=== PATIENT | male | born 1950 | race Caucasian/White ===

== ENCOUNTER 2016-12-14 16:28 | Emergency (ER) | payer MEDICARE, OTHER ==
[2016-12-14 16:41] VITALS: TEMP 97.7
[2016-12-14] MEDS ORDERED: ACETAMINOPHEN 325 MG PO ONE (17:01)
[2016-12-14] MEDS ORDERED: SODIUM CHLORIDE 0.9% 1000ML 1,000 ML IV ONE (17:01)
[2016-12-14] MEDS ORDERED: ACETAMINOPHEN 325 MG ONE (17:04)
[2016-12-14 17:14] LABS: BASOPHILS % (AUTO) 2 % (0-3); EOSINOPHILS % (AUTO) 4 % (0-9); HEMATOCRIT 39 % (39-53); MEAN CORPUSCULAR HGB CONC 33.4 gm/dl (32.0-36.0); MEAN CORPUSCULAR VOLUME 91 fL (80-100); MONOCYTES % (AUTO) 5.2 % (0-12); NEUTROPHILS % (AUTO) 75.3 % (37-80)
[2016-12-14 17:24] VITALS: RESP 18; O2SAT 97
[2016-12-14 17:31] LABS: ALBUMIN 3.5 gm/dl (3.4-5.0); ALT 25 IU/L (14-63); CALCIUM 8.4 mg/dl (8.5-10.1); GLOM FILT RATE 70 mL/min (>60); POTASSIUM 4.4 mMol/L (3.5-5.1); SODIUM 139 mMol/L (136-145)
[2016-12-14 18:23] VITALS: BP 128/72; PULSE 78
== END 2016-12-14 18:48 | DRG 641 ==
LOC: ED 16:28
DX: E86.0 Dehydration (principal)
CPT/HCPCS: 80053; 84484; 85025; 93005; 99285

== ENCOUNTER 2018-03-21 16:57 | Emergency (ER) | payer MEDICARE, OTHER ==
[2018-03-21 17:26] VITALS: PULSE 75; RESP 16; TEMP 97.5
[2018-03-21] MEDS ORDERED: KETOROLAC TROMETHAMINE 30 MG/ML SOL IM ONE (17:41)
[2018-03-21] MEDS ORDERED: CYCLOBENZAPRINE 10 MG TAB PO ONE (17:42)
[2018-03-21] MEDS ORDERED: KETOROLAC TROMETHAMINE 30 MG/ML SOL ONE (17:49)
[2018-03-21] MEDS ORDERED: CYCLOBENZAPRINE 10 MG TAB ONE (17:49)
[2018-03-21 18:17] LABS: BASOPHILS % (AUTO) 2 % (0-3); EOSINOPHILS % (AUTO) 5 % (0-9); HEMATOCRIT 41 % (39-53); HEMOGLOBIN 14.2 gm/dl (13.5-17.7); LYMPHOCYTES % (AUTO) 31.03 % (10-50); MEAN CORPUSCULAR HEMOGLOBIN 31.5 pg (27.0-32.0); MEAN CORPUSCULAR HGB CONC 34.1 gm/dl (32.0-36.0); MEAN CORPUSCULAR VOLUME 92 fL (80-100); MONOCYTES % (AUTO) 6.8 % (0-12); NEUTROPHILS % (AUTO) 54.7 % (37-80)
[2018-03-21 18:28] VITALS: BP 156/82; O2SAT 97
[2018-03-21 18:42] LABS: BILIRUBIN,DIRECT 0.1 mg/dl (0.0-0.2); BILIRUBIN,TOTAL 0.2 mg/dl (0.2-1.0); CALCIUM 8.8 mg/dl (8.5-10.1); CARBON DIOXIDE 33.5 mEq/L (21-32); CREATININE 0.92 mg/dl (0.80-1.30); POTASSIUM 4.4 mMol/L (3.5-5.1); THYROID STIMULATING HORMONE 1.861 uIU/ml (0.358-3.740); TOTAL PROTEIN 7.3 gm/dl (6.4-8.2)
== END 2018-03-21 18:58 | DRG 552 ==
LOC: ED 16:57
DX: M54.2 Cervicalgia (principal); M62.838 Other muscle spasm
CPT/HCPCS: 36415; 80048; 80076; 84443; 85025; 96372; 99283; J1885; A9270-GY

== ENCOUNTER 2018-12-31 01:19 | Emergency (ER) | payer MEDICARE, OTHER ==
[2018-12-31] MEDS ORDERED: HYDROMORPHONE HCL 2 MG/ML SOL IV ONE (01:36)
[2018-12-31] MEDS ORDERED: ACETAMINOPHEN 1,000 MG/100 ML VIAL IV ONE (01:36)
[2018-12-31] MEDS ORDERED: KETOROLAC TROMETHAMINE 30 MG/ML SOL IV ONE (01:36)
[2018-12-31 01:44] VITALS: RESP 16
[2018-12-31] MEDS ORDERED: ONDANSETRON HCL 4 MG/2 ML SOL IV ONE (01:45)
[2018-12-31] MEDS ORDERED: KETOROLAC TROMETHAMINE 30 MG/ML SOL ONE (01:48)
[2018-12-31] MEDS ORDERED: HYDROMORPHONE 1 MG/ML SYRINGE ONE (01:48)
[2018-12-31] MEDS ORDERED: ONDANSETRON HCL 4 MG/2 ML SOL ONE (01:49)
[2018-12-31 01:53] LABS: HEMATOCRIT 37 % (39-53); HEMOGLOBIN 12.2 gm/dl (13.5-17.7); MEAN CORPUSCULAR HGB CONC 32.8 gm/dl (32.0-36.0); MEAN CORPUSCULAR VOLUME 91 fL (80-100)
[2018-12-31 02:08] LABS: ALKALINE PHOSPHATASE 129 IU/L (46-116); ALT 19 IU/L (14-63); AST 21 IU/L (15-37); BILIRUBIN,TOTAL 0.2 mg/dl (0.2-1.0); BLOOD UREA NITROGEN 21 mg/dl (7-18); CALCIUM 8.7 mg/dl (8.5-10.1); CARBON DIOXIDE 32.9 mEq/L (21-32); CHLORIDE 101 mMol/L (98-107); GLUCOSE 99 mg/dl (74-106); POTASSIUM 4.8 mMol/L (3.5-5.1); SODIUM 138 mMol/L (136-145); TOTAL PROTEIN 6.9 gm/dl (6.4-8.2); TROP I < 0.017 ng/ml (0.000-0.056)
[2018-12-31 02:13] LABS: BAND NEUTROPHILS % (MANUAL) 4 %; NEUTROPHILS % (MANUAL) 54 % (37-80)
[2018-12-31 02:14] LABS: BASOPHILS % (MANUAL) 2 % (0-3); EOSINOPHILS % (MANUAL) 11 % (0-9); LYMPHOCYTES % (MANUAL) 22 % (10-50); MONOCYTES % (MANUAL) 7 % (0-12); NORMAL RBCS PRESENT
[2018-12-31] MEDS ORDERED: MAGNESIUM OXIDE 400 MG TAB ONE (02:39)
[2018-12-31] MEDS ORDERED: MAGNESIUM OXIDE 400 MG TAB PO SCH (09:00)
[2018-12-31 12:00] VITALS: BP 136/82; PULSE 76; O2SAT 93
== END 2018-12-31 08:40 | DRG 556 ==
LOC: SUPCPDRO 01:19 → ED 01:19
DX: M79.602 Pain in left arm (principal); M54.9 Dorsalgia, unspecified; E86.0 Dehydration
CPT/HCPCS: 36415; 80053; 83735; 84484; 85007; 85027; 93005; 96374; 96375; 99283; 99285; J1885; J2405; A9270-GY; J1170

== ENCOUNTER 2019-02-07 15:25 | Emergency (ER) | payer MEDICARE, OTHER ==
[2019-02-07 15:52] VITALS: RESP 16; TEMP 97.6
[2019-02-07 16:07] LABS: BASOPHILS % (AUTO) 1 % (0-3); EOSINOPHILS % (AUTO) 8 % (0-9); HEMATOCRIT 39 % (39-53); HEMOGLOBIN 13.1 gm/dl (13.5-17.7); LYMPHOCYTES % (AUTO) 16.2 % (10-50); MEAN CORPUSCULAR HEMOGLOBIN 30.8 pg (27.0-32.0); MEAN CORPUSCULAR HGB CONC 33.3 gm/dl (32.0-36.0); MEAN CORPUSCULAR VOLUME 93 fL (80-100); NEUTROPHILS % (AUTO) 65.3 % (37-80)
[2019-02-07 16:31] LABS: ALBUMIN 3.5 gm/dl (3.4-5.0); ALKALINE PHOSPHATASE 129 IU/L (46-116); ALT 28 IU/L (14-63); AST 26 IU/L (15-37); BILIRUBIN,TOTAL 0.2 mg/dl (0.2-1.0); BLOOD UREA NITROGEN 25 mg/dl (7-18); CALCIUM 8.6 mg/dl (8.5-10.1); CARBON DIOXIDE 33.3 mEq/L (21-32); CREATININE 1.03 mg/dl (0.80-1.30); GLUCOSE 92 mg/dl (74-106); TOTAL PROTEIN 7.1 gm/dl (6.4-8.2); TROP I < 0.017 ng/ml (0.000-0.056)
[2019-02-07 16:43] LABS: CHLORIDE 103 mMol/L (98-107); POTASSIUM 4.4 mMol/L (3.5-5.1); SODIUM 139 mMol/L (136-145)
[2019-02-07 19:29] VITALS: BP 161/67; PULSE 75; O2SAT 98
[2019-02-07 19:44] LABS: APPEARANCE,URINE Slightly Cloudy; BILIRUBIN,URINE NEGATIVE (NEGATIVE); COLOR,URINE Yellow; GLUCOSE, URINE (UA) NEGATIVE (NEGATIVE); KETONES,URINE NEGATIVE (NEGATIVE); LEUKOCYTE ESTERASE ,URINE 1+ (NEGATIVE); NITRATE,URINE POSITIVE (NEGATIVE); OCCULT BLOOD,URINE NEGATIVE (NEG-TRACE); UROBILINOGEN,URINE 0.2 (0.2-1.0 EU)
[2019-02-07 19:55] LABS: BACTERIA 3+ (< 1+); CRYSTALS NEGATIVE (0-3 AVE/HPF); EPITHELIAL CELLS 0-1 (SQUAMOUS); RBC,URINE 0-1 (0-3AV/HPF)
[2019-02-07] MEDS ORDERED: SULFAMETHOXAZOLE/TRIMETHOPRI 800/160 MG ONE (20:25)
[2019-02-07] MEDS ORDERED: SULFAMETHOXAZOLE/TRIMETHOPRI 800/160 MG PO ONE (20:25)
== END 2019-02-07 20:37 | DRG 690 ==
LOC: ED 15:25
DX: N30.00 Acute cystitis without hematuria (principal); R55 Syncope and collapse; R41.0 Disorientation, unspecified; H92.01 Otalgia, right ear; W18.30XA Fall on same level, unspecified, initial encounter
CPT/HCPCS: 36415; 70450; 73521; 80053; 81001; 84484; 85025; 87077; 87088; 87186; 93005; 99283; 99284; A9270-GY

== ENCOUNTER 2019-04-05 12:33 | Emergency (ER) | payer MEDICARE, OTHER ==
[2019-04-05 12:52] VITALS: TEMP 98.4
[2019-04-05 13:46] LABS: BASOPHILS % (AUTO) 1 % (0-3); EOSINOPHILS % (AUTO) 7 % (0-9); HEMATOCRIT 41 % (39-53); HEMOGLOBIN 13.4 gm/dl (13.5-17.7); LYMPHOCYTES % (AUTO) 25.7 % (10-50); MEAN CORPUSCULAR HEMOGLOBIN 31.7 pg (27.0-32.0); MEAN CORPUSCULAR HGB CONC 32.6 gm/dl (32.0-36.0); MEAN CORPUSCULAR VOLUME 97 fL (80-100); MONOCYTES % (AUTO) 11.7 % (0-12); NEUTROPHILS % (AUTO) 53.9 % (37-80)
[2019-04-05 13:56] LABS: INR 1.07 (0.87-1.13)
[2019-04-05 14:19] LABS: ALBUMIN 3.6 gm/dl (3.4-5.0); ALKALINE PHOSPHATASE 159 IU/L (46-116); ALT 28 IU/L (14-63); AST 30 IU/L (15-37); BILIRUBIN,TOTAL 0.2 mg/dl (0.2-1.0); BLOOD UREA NITROGEN 23 mg/dl (7-18); CALCIUM 8.4 mg/dl (8.5-10.1); CARBON DIOXIDE 31.9 mEq/L (21-32); CHLORIDE 104 mMol/L (98-107); CREATININE 1.01 mg/dl (0.80-1.30); GLUCOSE 87 mg/dl (74-106); TOTAL PROTEIN 7.2 gm/dl (6.4-8.2); TROP I < 0.017 ng/ml (0.000-0.056)
[2019-04-05 14:25] LABS: CRP INFLAMMATORY 0.03 mg/dl (0.00-0.33)
[2019-04-05 15:42] VITALS: RESP 18
[2019-04-05 15:45] LABS: APPEARANCE,URINE Slightly Cloudy; BILIRUBIN,URINE NEGATIVE (NEGATIVE); COLOR,URINE Dark yellow; GLUCOSE, URINE (UA) NEGATIVE (NEGATIVE); KETONES,URINE NEGATIVE (NEGATIVE); LEUKOCYTE ESTERASE ,URINE NEGATIVE (NEGATIVE); NITRATE,URINE NEGATIVE (NEGATIVE); OCCULT BLOOD,URINE NEGATIVE (NEG-TRACE); UROBILINOGEN,URINE 0.2 (0.2-1.0 EU)
[2019-04-05 15:50] LABS: RBC,URINE NEG (0-3AV/HPF); WBC,URINE 0-1 (0-5AV/HPF)
[2019-04-05 15:51] LABS: BACTERIA NEGATIVE (< 1+); CRYSTALS NEGATIVE (0-3 AVE/HPF)
[2019-04-05 16:55] VITALS: BP 142/66; PULSE 65; O2SAT 94
== END 2019-04-05 16:45 | DRG 948 ==
LOC: ED 12:33
DX: R89.2 Abnormal level of other drugs, medicaments and biological substances in specimens from other organs, systems and tissues (principal); R41.0 Disorientation, unspecified; R60.0 Localized edema; F03.90 Unspecified dementia, unspecified severity, without behavioral disturbance, psychotic disturbance, mood disturbance, and anxiety; W18.30XA Fall on same level, unspecified, initial encounter; R40.2362 Coma scale, best motor response, obeys commands, at arrival to emergency department; R40.2142 Coma scale, eyes open, spontaneous, at arrival to emergency department; R40.2242 Coma scale, best verbal response, confused conversation, at arrival to emergency department
CPT/HCPCS: 70450; 72125; 80053; 80185; 81001; 84484; 85025; 85610; 86140; 93005; 99284; 99285